=== PATIENT | male | born 1965 | race Caucasian/White ===

== ENCOUNTER 2025-03-17 07:48 | Emergency (ER) | payer OTHER ==
[~2025-03-17] VITALS: Ht 175.2 cm; Wt 90.7 kg
[2025-03-17] MEDS ORDERED: Dexamethasone Sodium Phospha 20 MG/5 ML VIAL IV ONE (08:30)
[2025-03-17] MEDS ORDERED: Ketorolac Tromethamine 30 MG/ML VIAL IV ONE (08:30)
[2025-03-17] MEDS ORDERED: Ondansetron Hydrochloride 4 MG/2 ML VIAL IV ONE (08:30)
[2025-03-17] MEDS ORDERED: diazePAM 5 MG TAB PO ONE (08:30)
[2025-03-17] MEDS ORDERED: HYDROmorphone Hydrochloride 1 MG/ML SYR IV ONE (08:30)
[2025-03-17] MEDS ORDERED: Ondansetron4 MG PO (09:45)
[2025-03-17] MEDS ORDERED: PREDNISONE20 M1 PO (09:45)
[2025-03-17] MEDS ORDERED: METHOCARBAMOL750 M1 PO (09:45)
[2025-03-17] MEDS ORDERED: PERCOCET 5-3251 EACH PO (09:45)
== END 2025-03-17 10:26 | disposition home or self-care (01) ==
LOC: ED 07:48 → EDSEX 07:50 → ED 07:50
DX: M54.16 Radiculopathy, lumbar region (principal); M54.32 Sciatica, left side; Z88.5 Allergy status to narcotic agent; Z88.8 Allergy status to other drugs, medicaments and biological substances